=== PATIENT | female | born 1995 | race Caucasian/White ===

== ENCOUNTER 2018-02-04 18:55 | Emergency (ER) | payer BC, MEDICAID ==
[~2018-02-04] VITALS: Ht 154.9 cm; Wt 86.2 kg
[2018-02-04 19:00] VITALS: BP_SYST 141
--- NOTE | 2018-02-04 19:05 | NUR ---
Patient to ER bed 7 to gown for evaluation. Side rails up. Report given from SIMRAN Pereira .
--- NOTE | 2018-02-04 19:10 | NUR ---
Pt reported pain to her chest, 4/10 ps, on and off x 2 weeks
--- NOTE | 2018-02-04 19:25 | NUR ---
ER at bedside examining patient.
--- NOTE | 2018-02-04 19:30 | NUR ---
Pt came into the ED for a 2 month hx of intermittent suprapubic ABD pain with n/v. Pt says that pain gets worse after eating and pain sometimes radiates to the back. Pts last menstrual period was -04/08 8. Admits she has irregular menses. Denies. esperanza, chills, vaginal bleeding, diarrhea, constipation. No other complaints/injuries noted. Will cont. to monitor.
[2018-02-04] MEDS ORDERED: IBUPROFEN 800 MG TABLET PO ONE (20:00)
[2018-02-04 21:53] VITALS: BP_SYST 141
--- NOTE | 2018-02-04 21:53 | NUR ---
Note undone in EDM - 02/04/18 at 2159 by [email or web address] Patient given written and verbal discharge instructions and verbalizes understanding. ER MD Dr. Finn discussed with patient the results and treatment provided. Patient in stable condition. ID arm band removed. Rx of loestrin and motrin given. Patient educated on pain management and to follow up with PMD within 2-3 days. Pain Scale 0/10. Opportunity for questions provided and answered. Medication side effect fact sheet provided.
== END 2018-02-04 21:53 | disposition home or self-care (01) ==
LOC: SED 18:55
DX: R10.2 Pelvic and perineal pain (principal)
CPT/HCPCS: 74018; 76830-TC; 76857; 81025; 93005; 99284

== ENCOUNTER 2018-04-25 21:23 | Emergency (ER) | payer BC, MEDICAID ==
[~2018-04-25] VITALS: Ht 154.9 cm; Wt 90.7 kg
[2018-04-25 21:27] VITALS: BP_SYST 136
[2018-04-26 01:14] VITALS: BP_SYST 128
== END 2018-04-26 01:14 | disposition home or self-care (01) ==
LOC: SED 21:23
DX: L25.9 Unspecified contact dermatitis, unspecified cause (principal)
CPT/HCPCS: 99282

== ENCOUNTER 2018-06-07 16:13 | Emergency (ER) | payer BC, MEDICAID ==
[~2018-06-07] VITALS: Ht 154.9 cm; Wt 89.4 kg
[2018-06-07 16:15] VITALS: BP_SYST 133
[2018-06-07 16:50] VITALS: BP_SYST 129
== END 2018-06-07 16:50 | disposition home or self-care (01) ==
LOC: SED 16:13
DX: H66.91 Otitis media, unspecified, right ear (principal); R51 Headache
CPT/HCPCS: 99283